=== PATIENT | male | born 1995 | race Caucasian/White ===

== ENCOUNTER 2016-10-25 22:57 | Emergency (ER) | payer OTHER ==
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
--- NOTE | 2016-10-26 01:37 | ED ORDER SUMMARY ---
..... Patient: GAIL CALDWELL OrderSheet [facility] VisitID: [id number] [address] [place] [address] 21y, M Registration Date/Time: 10/25/2016 ORDER SHEET Weight: 72.5 kg Allergies: Penicillins GENERAL ORDERS: MEDICATION ORDERS: Opsqqpi-Mlkkep-Qsulf Pertussis IM 0.5 mL (NOW) (23:26 10/25/2016 LAbe R.N. verbal order read back to Anupam EL) (Ack 23:27 LAbe R.N.) (23:33 LAbe R.N.) Lidocaine Injection 2 % (soln) (NOW) (00:18 10/26/2016 Anupam EL) (Ack 0:18 JSanders R.N.) (0:26 ELENIanders R.N.) IV FLUIDS: ORDER SHEET NOTES: [Electronically signed by Marilou Brown R.N. (02:18 10/26/2016)] [Electronically signed by Mario Martell MD (03:00 10/26/2016)] [Electronically locked/signed by Marilou Brown R.N. (02:18 10/26/2016)]
--- NOTE | 2016-10-26 01:37 | ED ORDER SUMMARY ---
..... Patient: GAIL CALDWELL OrderSheet [facility] VisitID: [id number] [address] [place] [address] 21y, M Registration Date/Time: 10/25/2016 ORDER SHEET Weight: 72.5 kg Allergies: Penicillins GENERAL ORDERS: MEDICATION ORDERS: Wgcyxxg-Epttbz-Hqyeq Pertussis IM 0.5 mL (NOW) (23:26 10/25/2016 LAbe R.N. verbal order read back to Anupam EL) (Ack 23:27 LAbe R.N.) (23:33 LAbe R.N.) Lidocaine Injection 2 % (soln) (NOW) (00:18 10/26/2016 Anupam EL) (Ack 0:18 JSanders R.N.) (0:26 ELENIanders R.N.) IV FLUIDS: ORDER SHEET NOTES: [Electronically signed by Marilou Brown R.N. (02:18 10/26/2016)] [Electronically signed by Mario Martell MD (03:00 10/26/2016)] [Electronically locked/signed by Marilou Brown R.N. (02:18 10/26/2016)]
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
--- NOTE | 2016-10-26 03:01 | ED MAR SUMMARY ---
..... Medication Administration Record [facility] [address] [place] [address] Patient: GAIL CALDWELL Visit ID: [id number] 21y, M Weight: 72.5 kg Height/Length: 68 in BMI: 24.3 ALLERGIES: Penicillins Given 23:33 10/25/2016 Nereida Calderon R.N. Medication Administered: CVYUZHY-ZTSDKL-UCFRX PERTUSSIS [IM], Dose: 0.5 mL IM. Medication Ordered: Eqnehad-Uiysha-Svsws Pertussis IM 0.5 mL (NOW). Given 00:26 10/26/2016 Marilou Brown R.N. Medication Administered: LIDOCAINE [INJECTION], Dose: 2 % Injectable Injection. Medication Ordered: Lidocaine Injection 2 % (soln) (NOW).
--- NOTE | 2016-10-26 03:01 | ED DISCHARGE INSTRUCTIONS ---
Patient: GAIL CALDWELL General Instructions [facility] VisitID: [id number] [place] [address] 21y, M Registration Date/Time: 10/25/2016 Single laceration to the right hand. INSTRUCTIONS Wear aluminum splint until better. Protect wound and keep wound area clean. Change dressing twice daily. You may wash wounds briefly, then dry. Apply neosporin twice daily. Sutures/marvin should be removed in ten days. Do not work with right hand for nine days until released. Warnings: COMPLICATIONS: Complications from this condition include: possible infection, possible injury to a nerve, possible injury to a tendon and possible injury to a ligament. Future problems may include infection, scarring, loss of function, pain and deformity. INFECTION: Watch for signs of infection (increasing heat and redness, pus-like drainage, swelling, or increased pain). Return or see your doctor if these signs occur. It is important to follow up with a physician for further evaluation and treatment. INFECTION: Watch for signs of infection (increasing heat and redness, pus-like drainage, swelling, or increased pain). Return or see your doctor if these signs occur. TETANUS: You were given a tetanus shot during your visit. Make a note for future reference. GENERAL WARNINGS: Return or contact your physician immediately if your condition worsens or changes unexpectedly, if not improving as expected, or if other problems arise. Follow-up: Follow up with your doctor in ten days for suture removal. Understanding of the discharge instructions verbalized by patient. ADDITIONAL INFORMATION Laceration, Extremity (Sutures, [place], Or Tape) A laceration is a cut through the skin. This will usually require stitches (sutures) or marvin if it is deep. Minor cuts may be treated with surgical tape closures. Home care The following guidelines will help you care for your laceration at home: Keep the wound clean and dry. If a bandage was applied and it becomes wet or dirty, replace it. Otherwise, leave it in place for the first 24 hours, then change it once a day or as directed. If stitches or marvin were used, clean the wound daily: After removing the bandage, wash the area with soap and water. Use a wet cotton swab to loosen and remove any blood or crust that forms. After cleaning, keep the wound clean and dry. Talk with your doctor before applying any antibiotic ointment to the wound. Reapply the bandage. You may remove the bandage to shower as usual after the first 24 hours, but do not soak the area in water (no swimming) until the stitches or marvin are removed. If surgical tape closures were used, keep the area clean and dry. If it becomes wet, blot it dry with a towel. The doctor may prescribe an antibiotic cream or ointment to prevent infection. Do not stop taking this medication until you have finished the prescribed course or the doctor tells you to stop. The doctor may also prescribe medications for pain. Follow the doctors instructions for taking these medications. If you have chronic liver or kidney disease or ever had a stomach ulcer or GI bleeding, talk with your doctor before using these medicines. Follow-up care Follow up with your health care provider. Most skin wounds heal within ten days. However, an infection may sometimes occur despite proper treatment. Therefore, check the wound daily for the signs of infection listed below. Stitches and marvin should be removed within 714 days. If surgical tape closures were used, you may remove them after 10 days, if they have not fallen off by then. Notify your doctor if you notice persistent numbness or weakness in the injured extremity. (Note:A radiologist will review any X-rays that were taken. We will notify you of any new findings that may affect your care.) When to seek medical care Get prompt medical attention if any of these occur: Increasing pain in the wound Redness, swelling, or pus coming from the wound Fever of 100.4F (38C) or higher, or as directed by your health care provider If stitches or marvin come apart or fall out before your next appointment If the surgical tape closures fall off within seven days, or the wound edges re-open Bleeding not controlled by direct pressure Laceration: Will There Be A Scar? A laceration is a cut through one or more layers of the skin. The goal of emergency treatment is to clean the wound and close it to prevent infection, control bleeding and speed healing. Cuts heal because the body is able to repair the skin by "sealing" the edges together with collagen, a kind of "skin cement." How deep your cut is, its location on your body, your age and the way your skin heals all determine how visible the final scar will be. Some persons tend to heal with more scar tissue than others. This cut will probably heal similar to other cuts you have had in the past. What You Can Do: There are a few simple things that you can do to limit the amount of scar that forms: 1) PREVENT INFECTION: An infected wound makes a bigger scar. Keep the wound clean and dry. Change the dressing and apply any ointment/cream as directed. 2) MASSAGE THE WOUND:After the stitches have been removed: Use a moisturizing cream or lotion containing Aloe or Vitamin E Oil and gently massage the skin around the wound with your fingertips (wash your hands first!). Do this twice a day for the first two weeks, then once a day for a month. This will increase the flow of oxygen and blood to the wound and prevent excess scar tissue from building up. 3) AVOID SUN EXPOSURE: During the first six months, avoid sun exposure since the scar may gray a much darker color than the skin around it. When in the sun, use SPF #50 (or greater) sun block on the scar, or cover the area with a hat or clothing. What To Expect: -- The cut will be sealed within 2 days and will be strong within 5-10 days. However, it will take at least SIX MONTHS for it to be fully healed. -- During the FIRST THREE MONTHS, you may notice the scar line getting more red or purple in color. The scar may become raised. The skin around the wound may feel thick and lumpy. -- During the FOURTH TO SIXTH MONTHS, this process begins to reverse. The red and purple color will fade, the scar line flattens, and the skin around it feels more normal. -- In most cases, the way the scar line looks after six months is the way it will remain, although there may be some continued improvement up to one year after the injury. Is There Anything Else That Can Be Done? If you do not like the way the scar looks after six months, a plastic surgeon may be able to perform a "scar revision." If you have any questions or problems as your wound heals, contact your doctor or this facility. We will be glad to assist you. Bandage Change If the bandage becomes wet or dirty, replace it. Otherwise, leave it in place for the first 24 hours. Then once a day: After removing the bandage, wash the area with soap and water. Use a wet cotton swab to loosen and remove any blood or crust that forms on the wound. After cleaning, apply a thin layer of antibiotic ointment or cream. Reapply the bandage. You may shower as usual after the first 24 hours. If the bandage is on an arm or leg, cover it with a plastic bag rubber banded at both ends before showering. No tub baths or swimming until the bandage is removed and the wound healed (at least 7 days). Diphtheria Toxoid Adsorbed, Pertussis Vaccine, Acellular (Adsorbed), Tetanus Toxoid, Adsorbed Suspension for injection What is this medicine? DIPHTHERIA and TETANUS TOXOIDS; PERTUSSIS VACCINE (dif THEER ee uh and TET n us TOK soids; per HIMANSHU espana SEEN) is used to prevent diphtheria, tetanus, and pertussis infections. How should I use this medicine? This vaccine is for injection into a muscle. It is given by a health career and guidance counselor. A copy of Vaccine Information Statements will be given before each vaccination. Read this sheet carefully each time. The sheet may change frequently. Talk to your install and repair technician regarding the use of this vaccine in children. While the DTP vaccine may be given to children ages 6 weeks to 7 years and the Tdap vaccine may be given to children at least 10 years old, precautions do apply. What side effects may I notice from receiving this medicine? Side effects that you should report to your doctor or health career and guidance counselor as soon as possible: allergic reactions like skin rash, itching or hives, swelling of the face, lips, or tongue breathing problems fever of 103 degrees F or more flu-like symptoms inconsolable crying infection pain, tingling, numbness in the hands or feet seizures swelling of arm or leg that was injected unusually weak or tired Side effects that usually do not require immediate medical attention (report these side effects to your doctor or health career and guidance counselor if they continue or are bothersome): fussy, irritable loss of appetite fever of 102 degrees F or less pain, tenderness, redness, swelling, or a 'knot' at site where injected vomiting What may interact with this medicine? immune globulin medicines that suppress your immune function like adalimumab, anakinra, infliximab medicines to treat cancer medicines that treat or prevent blood clots like warfarin, enoxaparin, and dalteparin steroid medicines like prednisone or cortisone What if I miss a dose? It is important not to miss your dose. Call your doctor or health career and guidance counselor if you are unable to keep an appointment. Where should I keep my medicine? This drug is given in a hospital or clinic and will not be stored at home. What should I tell my health care provider before I take this medicine? They need to know if you have any of these conditions: blood disorders like hemophilia fever or infection immune system problems neurologic disease seizures an unusual or allergic reaction to vaccines, thimerosal, latex, other medicines, foods, dyes, or preservatives or trying to get breast-feeding What should I watch for while using this medicine? See your health care provider for all shots of this vaccine as directed. To have protection from infection, you must have 3 shots of this vaccine plus boosters as needed. Tell your doctor right away if you have any serious or unusual side effects after getting this vaccine. You have been given the following additional information: Laceration, Extrem (Suture, Staple, Or Tape) Laceration, How To Minimize Scar Dressing Change Diphtheria Toxoid Adsorbed, Pertussis Vaccine, Acellular (Adsorbed), Tetanus Toxoid, Adsorbed Suspension for injection Do not work with right hand for nine days until released. (Electronically signed by Mario Martell MD 10/26/2016 3:00)
--- NOTE | 2016-10-26 03:01 | ED MED RECONCILIATION SUMMARY ---
Patient: GAIL CALDWELL Medication Reconciliation Report Merged With [facility] VisitID: [id number] [address] [place] [address] 21y, M Registration Date/Time: 10/25/2016 Weight: 72.5 kg Height/Length: 68 in. BMI: 24.3 ALLERGIES: Penicillins The patient's Home Medications are listed below: NONE. The source(s) of the original Home Medication information: patient The following Medications were given to the patient in the Emergency Department: [id number] PERTUSSIS [IM] IM 0.5 mL, administered: 10/25/2016 11:33:00 PM Lidocaine [Injection] Injection 2 %, administered: 10/26/2016 12:26:00 AM The following Medications were prescribed to the patient: None.
--- NOTE | 2016-10-26 03:01 | ED MED RECONCILIATION SUMMARY ---
Patient: GAIL CALDWELL Medication Reconciliation Report [facility] VisitID: [id number] [address] [place] [address] 21y, M Registration Date/Time: 10/25/2016 Weight: 72.5 kg Height/Length: 68 in. BMI: 24.3 ALLERGIES: Penicillins The patient's Home Medications are listed below: NONE. The source(s) of the original Home Medication information: patient The following Medications were given to the patient in the Emergency Department: [id number] PERTUSSIS [IM] IM 0.5 mL, administered: 10/25/2016 11:33:00 PM Lidocaine [Injection] Injection 2 %, administered: 10/26/2016 12:26:00 AM The following Medications were prescribed to the patient: None.
--- NOTE | 2016-10-26 03:01 | ED MAR SUMMARY ---
..... Medication Administration Record [facility] [address] [place] [address] Patient: GAIL CALDWELL Visit ID: [id number] 21y, M Weight: 72.5 kg Height/Length: 68 in BMI: 24.3 ALLERGIES: Penicillins Given 23:33 10/25/2016 Nereida Calderon R.N. Medication Administered: [id number] PERTUSSIS [IM], Dose: 0.5 mL IM. Medication Ordered: Tcgkhhv-Maymip-Jstal Pertussis IM 0.5 mL (NOW). Given 00:26 10/26/2016 Marilou Brown R.N. Medication Administered: LIDOCAINE [INJECTION], Dose: 2 % Injectable Injection. Medication Ordered: Lidocaine Injection 2 % (soln) (NOW).
== END 2016-10-26 01:55 | disposition home or self-care (01) ==
LOC: ED SRH 22:57
DX: S61.411A Laceration without foreign body of right hand, initial encounter (principal); W26.8XXA Contact with other sharp object(s), not elsewhere classified, initial encounter; Y93.9 Activity, unspecified; Y92.410 Unspecified street and highway as the place of occurrence of the external cause; Y99.9 Unspecified external cause status; Z23 Encounter for immunization; F17.210 Nicotine dependence, cigarettes, uncomplicated; Z88.0 Allergy status to penicillin